=== PATIENT | male | born 1960 | race African-American/Black ===

== ENCOUNTER 2016-11-29 11:23 | Emergency (ER) | payer OTHER ==
[~2016-11-29] VITALS: Ht 172.7 cm; Wt 92.1 kg
[~2016-11-29 11:23] MED LIST: ALBUTEROL SULF8.5 GM INH; BACTRIM DS TAB1 EAC1 ORAL; LEVAQUIN500 MG ORAL; PREDNISONE10 MG ORAL; PROMETHAZINE-C118 M1 ORAL
--- NOTE | 2016-11-29 11:34 | Emergency Room Report ---
History of Present Illness General Chief Complaint: Headache Source: Patient Present Illness HPI Patient present with complaints of headache Ongoing for the past 2 days no Patient feels the pain starting in the lower part of the back of the head comes up or to the front Patient states that he has had headaches before however this one feels worse Denies any focal weakness denies any vomiting Denies any chest pain or shortness of breath Patient is borderline diabetic Denies any fall or trauma Denies any fevers Allergies: Coded Allergies: No Known Allergies (Unverified , 10/16/15) Patient History Past Medical History: see triage record Pertinent Family History: none Reviewed Nursing Documentation: PMH: Agreed, PSxH: Agreed Nursing Documentation-PMH Past Medical History: No History, Except For Hx Asthma: Yes Hx Diabetes: Yes - Borderline Diabetes Review of Systems All Other Systems: negative except mentioned in HPI Physical Exam Vital Signs Date Time Temp Pulse Resp B/P Pulse Ox O2 Delivery O2 Flow Rate FiO2 11/29/16 11:25 98.2 91 18 146/81 98 Room Air Sp02 EP Interpretation: reviewed, normal General Appearance: well appearing, no apparent distress Head: normocephalic, atraumatic Eyes: bilateral eye EOMI, bilateral eye PERRL ENT: hearing grossly normal, normal pharynx, TMs + canals normal, uvula midline Neck: full range of motion, supple, no meningismus, no bony tend Respiratory: lungs clear, normal breath sounds, no rhonchi, no respiratory distress, no retraction, no accessory muscle use Cardiovascular #1: normal peripheral pulses, regular rate, rhythm, no edema, no gallop, no JVD, no murmur Gastrointestinal: normal bowel sounds, non tender, soft, no mass, no organomegaly, non-distended, no guarding, no hernia, no pulsatile mass, no rebound Genitourinary: no CVA tenderness Musculoskeletal: normal inspection Neurologic: oriented x3, responsive, 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, motor strength/ tone normal, sensory intact Psychiatric: mood/affect normal Skin: normal color, no rash, warm/dry, palpation normal Lymphatic: normal inspection, no adenopathy Medical Decision Making Diagnostic Impression: Primary Impression: Headache ER Course Multiple differentials such as neurological, neurosurgical, infectious pathology entertained Patient is afebrile does not show any signs of nuchal rigidity CT head was negative at this time Given the duration of symptoms, I would suspect to see some abnormality with any intracranial hemorrhage of course subarachnoid hemorrhage can be difficult to visualize however the patient's pain has been significantly improved He continues to have any focal findings I did not feel that lumbar puncture and was required Patient will have initial conservative outpatient trial and return with any changes Labs Test 11/29/16 11:43 White Blood Count 10.1 K/UL (4.8-10.8) Red Blood Count 5.16 M/UL (4.70-6.10) Hemoglobin 15.0 G/DL (14.2-18.0) Hematocrit 45.0 % (42.0-52.0) Mean Corpuscular Volume 87 FL (80-99) Mean Corpuscular Hemoglobin 29.1 PG (27.0-31.0) Mean Corpuscular Hemoglobin Concent 33.3 G/DL (32.0-36.0) Red Cell Distribution Width 12.1 % (11.6-14.8) Platelet Count 248 K/UL (150-450) Mean Platelet Volume 6.4 FL (6.5-10.1) Neutrophils (%) (Auto) 67.1 % (45.0-75.0) Lymphocytes (%) (Auto) 20.5 % (20.0-45.0) Monocytes (%) (Auto) 9.5 % (1.0-10.0) Eosinophils (%) (Auto) 2.3 % (0.0-3.0) Basophils (%) (Auto) 0.6 % (0.0-2.0) Prothrombin Time 10.1 SEC (9.30-11.50) Prothromb Time International Ratio 1.0 (0.9-1.1) Activated Partial Thromboplast Time 27 SEC (23-33) Sodium Level 138 mEQ/L (135-145) Potassium Level 3.9 mEQ/L (3.4-4.9) Chloride Level 98 mEQ/L (98-107) Carbon Dioxide Level 27 mEQ/L (20-30) Anion Gap 13 (5-15) Blood Urea Nitrogen 10 mg/dL (7-23) Creatinine 0.9 mg/dL (0.7-1.2) Estimat Glomerular Filtration Rate > 60 mL/min (>60) Glucose Level 116 mg/dL (74-106) Calcium Level 9.5 mg/dL (8.6-10.2) Total Bilirubin 0.3 mg/dL (0.0-1.2) Aspartate Amino Transf (AST/SGOT) 28 U/L (5-40) Alanine Aminotransferase (ALT/SGPT) 24 U/L (3-41) Alkaline Phosphatase 52 U/L (40-129) Total Creatine Kinase 311 U/L (38-174) Creatine Kinase MB 2.0 ng/mL (< 6.7) Creatine Kinase MB Relative Index 0.6 Troponin I < 0.30 ng/mL (<=0.30) Total Protein 7.3 g/dL (6.6-8.7) Albumin 4.1 g/dL (3.5-5.2) Globulin 3.2 g/dL Albumin/Globulin Ratio 1.2 (1.0-2.7) EKG Diagnostic Results Rate: normal Rhythm: NSR ST Segments: no acute changes Rhythm Strip Diag. Results EP Interpretation: yes Rate: 77 Rhythm: NSR, no PVC's, no ectopy CT/MRI/US Diagnostic Results CT/MRI/US Diagnostic Results : Impression CT head no acute disease Last Vital Signs Date Time Temp Pulse Resp B/P Pulse Ox O2 Delivery O2 Flow Rate FiO2 11/29/16 11:25 98.2 91 18 146/81 98 Room Air Status: improved Disposition: HOME, SELF-CARE Condition: Improved Scripts Acetaminophen With Codeine (T#3) (TYLENOL #3 TAB*) Y Tab 1 TAB ORAL Q8H Y for For Pain, #7 TAB Prov: DAVID OVIEDO D.O. 11/29/16 Ibuprofen* (MOTRIN*) 600 Mg Tablet 600 MG ORAL Q8H Y for For Pain, #20 TAB 0 Refills Prov: DAVID OVIEDO D.O. 11/29/16 Additional Instructions: Patient is provided with the discharge instructions notified to follow up with primary doctor in the next 2-3 days otherwise return to the er with any worsening symptoms. Please note that this report is being documented using [employer] technology. This can lead to erroneous entry secondary to incorrect interpretation by the dictating instrument. DAVID OVIEDO D.O. Nov 29, 2016 11:34
[2016-11-29] MEDS ORDERED: Morphine Sulfate 4mg/ml Inj IVP ONE (11:45)
[2016-11-29] MEDS ORDERED: DiphenhydrAMINE 50mg/ml Inj IVP ONE (11:45)
[2016-11-29] MEDS ORDERED: Ketorolac 30mg Inj IV ONE (11:45)
[2016-11-29 11:57] VITALS: BP 143/84
[2016-11-29 12:18] LABS: BASOPHILS % (AUTO) 0.6 % (0.0-2.0); EOSINOPHILS % (AUTO) 2.3 % (0.0-3.0); LYMPHOCYTES % (AUTO) 20.5 % (20.0-45.0); MEAN CORPUSCULAR HEMOGLOBIN 29.1 PG (27.0-31.0); MEAN CORPUSCULAR HGB CONC 33.3 G/DL (32.0-36.0); MEAN CORPUSCULAR VOLUME 87 FL (80-99); MEAN PLATELET VOLUME 6.4 FL (6.5-10.1); MONOCYTES % (AUTO) 9.5 % (1.0-10.0); NEUTROPHILS % (AUTO) 67.1 % (45.0-75.0); PLATELET COUNT 248 K/UL (150-450); RED BLOOD COUNT 5.16 M/UL (4.70-6.10); RED CELL DISTRIBUTION WIDTH 12.1 % (11.6-14.8); WHITE BLOOD COUNT 10.1 K/UL (4.8-10.8)
[2016-11-29 12:27] LABS: PROTHROMBIN TIME 10.1 SEC (9.30-11.50)
[2016-11-29 12:29] LABS: ALANINE AMINOTRANSFERASE 24 U/L (3-41); ALBUMIN/GLOBULIN RATIO 1.2 (1.0-2.7); ANION GAP 13 (5-15); ASPARTATE AMINO TRANSFERASE 28 U/L (5-40); CALCIUM 9.5 mg/dL (8.6-10.2); CARBON DIOXIDE 27 mEQ/L (20-30); CHLORIDE 98 mEQ/L (98-107); CREATININE 0.9 mg/dL (0.7-1.2); GLOMERULAR FILTRATION RATE > 60 mL/min (>60); HEMOLYSIS 13; POTASSIUM 3.9 mEQ/L (3.4-4.9); SODIUM 138 mEQ/L (135-145); TOTAL PROTEIN 7.3 g/dL (6.6-8.7)
[2016-11-29 12:30] LABS: TROPONIN I < 0.30 ng/mL (<=0.30)
[2016-11-29] MEDS ORDERED: ACETAMINOPHEN-1 EAC1 ORAL (13:39)
[2016-11-29] MEDS ORDERED: IBUPROFEN600 MG ORAL (13:39)
[2016-11-29 13:52] VITALS: BP 147/82
[2016-11-29 13:53] VITALS: BP 147/82
--- NOTE | 2016-11-29 16:43 | Diagnostic Imaging Report ---
Indication: PAIN Technique: Continuous helical CT scanning of the head was performed without intravenous contrast material. Axial and coronal 5 mm sections were generated. Radiation dose was minimized using automated exposure control Dose: Total Dose Length Product - DLP [address] Dose Index - CTDIvol(s) 70.38 mGy. Comparison: None Findings: The ventricular system is normal in size and configuration. There is no shift of midline structures. No abnormal extra-axial fluid collections are noted. There is no evidence of intracerebral bleeding. There is a prominent perivascular space versus an old lacunar infarct in the right inferior basal ganglia region. The calvarium is intact. The sinuses are clear. The mastoids are clear Impression: Prominent perivascular space versus old right basal ganglia lacunar infarct Negative for acute intracranial bleed or mass effect The CT scanner at [facility] is accredited by the [employer] and the scans are performed using protocols designed to limit radiation exposure to as low as reasonably achievable to attain images of sufficient resolution adequate for diagnostic evaluation.
== END 2016-11-29 13:54 | disposition home or self-care (01) ==
LOC: EMR 12:02
DX: R51 Headache (principal); M54.5 Low back pain; R73.03 Prediabetes; J45.909 Unspecified asthma, uncomplicated
CPT/HCPCS: 36415; 70450; 80053; 82550; 82553; 84484; 85025; 85610; 85730; 93005; 96374; 96375; 99284; J1200; J1885; J2270

== ENCOUNTER 2020-06-03 20:00 | Emergency (ER) | payer MEDICAID, OTHER ==
[~2020-06-03] VITALS: Ht 172.7 cm; Wt 95.3 kg
[~2020-06-03 20:00] MED LIST changes: +ACETAMINOPHEN-1 EAC1 ORAL; +ACETAMINOPHEN500 M3 ORAL; +IBUPROFEN600 MG ORAL; +ROBAXIN-500MG ORAL
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
[2020-06-03 20:20] VITALS: BP 168/98
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
[2020-06-03] MEDS ORDERED: Ketorolac 30mg Inj IV ONE (20:45)
[2020-06-03 21:18] LABS: BASOPHILS % (AUTO) 0.6 % (0.0-2.0); HEMATOCRIT 47.9 % (42.0-52.0); HEMOGLOBIN 16.4 G/DL (14.2-18.0); LYMPHOCYTES % (AUTO) 27.3 % (20.0-45.0); MEAN CORPUSCULAR VOLUME 88 FL (80-99); MONOCYTES % (AUTO) 11.5 % (1.0-10.0); NEUTROPHILS % (AUTO) 58.7 % (45.0-75.0); PLATELET COUNT 226 K/UL (150-450); RED BLOOD COUNT 5.45 M/UL (4.70-6.10); RED CELL DISTRIBUTION WIDTH 12.2 % (11.6-14.8); WHITE BLOOD COUNT 9.3 K/UL (4.8-10.8)
[2020-06-03 21:24] LABS: BILIRUBIN, URINE NEGATIVE (NEGATIVE); COLOR,URINE PALE YELLOW; GLUCOSE, URINE (UA) NEGATIVE (NEGATIVE); KETONES,URINE NEGATIVE (NEGATIVE); LEUKOCYTE ESTERASE ,URINE 1+ (NEGATIVE); NITRITE,URINE NEGATIVE (NEGATIVE); PH,URINE 7 (4.5-8.0); PROTEIN,URINE 1+ (NEGATIVE); UROBILINOGEN,URINE 1 MG/DL (0.0-1.0)
[2020-06-03 21:28] LABS: APPEARANCE,URINE SLIGHTLY CLOUDY
[2020-06-03 21:32] LABS: ANION GAP 6 mmol/L (5-15); BLOOD UREA NITROGEN 17 mg/dL (7-18); CARBON DIOXIDE 32 MMOL/L (21-32); CHLORIDE 103 MMOL/L (98-107); CREATININE 1.4 MG/DL (0.55-1.30); POTASSIUM 3.8 MMOL/L (3.5-5.1); SODIUM 141 MMOL/L (136-145)
--- NOTE | 2020-06-03 21:34 | NUR ---
ED Nurse Note: imaging at bedside with histotechnologist supervisor
[2020-06-03 21:37] LABS: ALANINE AMINOTRANSFERASE 29 U/L (12-78); ALBUMIN 3.8 G/DL (3.4-5.0); ALBUMIN/GLOBULIN RATIO 1.1 (1.0-2.7); ALKALINE PHOSPHATASE 61 U/L (46-116); ASPARTATE AMINO TRANSFERASE 23 U/L (15-37); BILIRUBIN,TOTAL 0.3 MG/DL (0.2-1.0)
[2020-06-03] MEDS ORDERED: NAPROXEN375 M2 ORAL (22:39)
[2020-06-03 22:42] VITALS: BP 168/98
--- NOTE | 2020-06-03 22:42 | NUR ---
ER DISCHARGE NOTE: Patient is cleared to be discharged per ERMD, pt is aox4, on room air, with stable vital signs. pt was given dc and prescription instructions, pt was able to verbalize understanding, pt id band and iv site removed without complications. pt is able to ambulate with steady gait. pt took all belongings.
--- NOTE | 2020-06-03 23:31 | Diagnostic Imaging Report ---
EXAM: XR Chest, 1 View CLINICAL HISTORY: CP TECHNIQUE: Frontal view of the chest. COMPARISON: 06/30/2016. FINDINGS: Lungs: Bilateral mild pulmonary edema/infiltrates. Pleural space: Unremarkable. No pneumothorax. Heart: Unremarkable. No cardiomegaly. Mediastinum: Unremarkable. Bones/joints: Unremarkable. IMPRESSION: Bilateral mild pulmonary edema/infiltrates.
== END 2020-06-03 22:43 | disposition home or self-care (01) ==
LOC: EMR 20:16
DX: M25.512 Pain in left shoulder (principal); F19.10 Other psychoactive substance abuse, uncomplicated; F17.200 Nicotine dependence, unspecified, uncomplicated; I10 Essential (primary) hypertension; M54.2 Cervicalgia; F14.90 Cocaine use, unspecified, uncomplicated
CPT/HCPCS: 36415; 71045; 80053; 80307; 81001; 85025; 85610; 85730; 87086; 93005; 96374; J1885; U0002; Z7502; 99284